=== PATIENT | female | born 1940 | race Caucasian/White ===

== ENCOUNTER 2018-05-25 12:02 | Inpatient (IN) | payer MEDICARE, OTHER ==
[~2018-05-25] VITALS: Ht 167.6 cm; Wt 88.0 kg
[~2018-05-25 12:02] MED LIST: ALLEGRA ALLERG180 MG PO; ASPIR 8181 MG PO; ATENOLOL 100MG100 M2 PO; COZAAR 50 MG TA50 MG PO; FISH OIL 1,001000 M2 PO; GLUCOPHAGE1000 MG PO; GLUCOPHAGE500 MG PO; HYDROCHLOROTHIA25 M1 PO; LIPITOR 10 MG10 M1 PO; PROBIOTIC1 EAC1 PO; TRAMADOL 50 MG50 MG PO
[2018-05-25 12:11] VITALS: BP 204/91
[2018-05-25] MEDS ORDERED: GLIPIZIDE ER2.5 MG PO (12:17)
[2018-05-25 12:35] LABS: ABSOLUTE BASOPHILS 0.1 thou/uL (0.0-0.2); ABSOLUTE EOSINOPHILS 0.1 thou/uL (0.0-0.7); ABSOLUTE LYMPHOCYTES 1.8 thou/uL (0.8-5.3); ABSOLUTE MONOCYTES 0.5 thou/uL (0.0-1.2); ABSOLUTE NEUTROPHILS 3.7 thou/uL (1.6-8.1); EOSINOPHILS 1.2 %; HEMATOCRIT 35.4 % (37.0-47.0); LYMPHOCYTES 29.5 %; MCH 30.8 pg (26.0-34.0); MCHC 33.9 g/dL (28.0-37.0); MPV 9.5 fl. (7.2-11.1); NUCLEATED RBCS 0 /100WBC; PLATELET COUNT* 181 thou/uL (150-400); POLYS 60.3 %; RBC 3.89 mil/uL (4.20-5.00); RDW-CV 13.3 % (10.5-14.5); WBC 6.1 thou/uL (4.0-11.0)
[2018-05-25 12:42] LABS: ANION GAP 8 mmol/L (7-16); BUN 18 mg/dL (7-18); CALCIUM 9.6 mg/dL (8.5-10.1); CHLORIDE 102 mmol/L (98-107); CO2 29 mmol/L (21-32); GLUCOSE 211 mg/dL (70-99); POTASSIUM 4.1 mmol/L (3.5-5.1); SODIUM 139 mmol/L (136-145)
[2018-05-25 12:50] LABS: ALBUMIN 3.7 g/dL (3.4-5.0); ALKALINE PHOSPHATASE 23 U/L (46-116); SGOT 26 U/L (15-37); SGPT 48 U/L (30-65); TOTAL BILIRUBIN 0.8 mg/dL (<0.1-1.0); TOTAL PROTEIN 7.3 g/dL (6.4-8.2); TROPONIN-I LEVEL <0.06 ng/mL (<0.06)
[2018-05-25 14:56] LABS: URINE BILIRUBIN NEGATIVE (Negative); URINE BLOOD NEGATIVE (Negative); URINE CLARITY CLEAR; URINE COLOR YELLOW; URINE GLUCOSE-RANDOM NEGATIVE (Negative); URINE KETONES NEGATIVE (Negative); URINE LEUKOCYTES-REFLEX TRACE (Negative); URINE PROTEIN NEGATIVE (Negative); URINE SPECIFIC GRAVITY >= 1.030 (1.005-1.030); URINE UROBILINOGEN 0.2 E.U./dl (0.2-1.0)
[2018-05-25 14:58] LABS: URINE NITRITE-REFLEX POSITIVE (Negative)
[2018-05-25 15:11] LABS: BACTERIA-REFLEX >30 Many /HPF (None Seen); SQUAMOUS >10 Many /LPF (0-3); URINE RBC None Seen /HPF (0-2); URINE WBC-REFLEX 0-5 Rare /HPF (0-5)
[2018-05-25 15:12] LABS: CASTS None Seen /LPF (None Seen); TRIPLE PHOSPHATE CRYSTALS 0-3 Few /LPF (None Seen)
[2018-05-25 16:03] VITALS: BP 163/80
[2018-05-25 17:00] VITALS: BP 167/72
[2018-05-25 20:00] VITALS: BP 168/80
[2018-05-26] VITALS (7 sets, daily range): BP systolic 108–171; BP diastolic 57–87
--- NOTE | 2018-05-26 14:58 | EKG ---
[place] [address] ELECTROCARDIOGRAM REPORT Name: NOA BARRERANE Wei Room: [address] ADM IN M.R.#: [id number] Admission: 05/25/18 Attend Phys: Brayan Sherwood, Discharge: Date of : 42 Report #: [id number] THIS REPORT FOR: //name// [facility] ED Test Date: 2018-05-25 Test Time: 12:37:10 Pat Name: FAREED BARRERA Department: Room: [facility] Gender: F Manager Solution: : 1940 Requested By: Mayi Torrez Order Number: [id number] MD: Rufino Ge Measurements Intervals Prentiss Rate: 68 P: 14 ND: 158 QRS: 27 QRSD: 98 T: 57 QT: 404 QTc: 430 Interpretive Statements Sinus rhythm Abnormal R-wave progression, early transition Baseline wander in lead(s) V1 Compared to ECG 07/09/2017 13:47:41 No significant changes Electronically Signed On 05-26-2018 14:58:26 CDT by Rufino Ge [email or web address] <ELECTRONICALLY SIGNED> By: Rufino Ge MD, FACC 05/26/18 1458 1237 1237 Rufino Ge MD, FACC /EPI
[2018-05-27 03:46] VITALS: BP 167/80
[2018-05-27 05:32] LABS: HEMATOCRIT 34.6 % (37.0-47.0); HEMOGLOBIN 11.7 gm/dL (12.0-15.0); MCHC 33.9 g/dL (28.0-37.0); MCV 91.4 fL (80.0-100.0); MPV 9.9 fl. (7.2-11.1); RBC 3.79 mil/uL (4.20-5.00); RDW-CV 13.8 % (10.5-14.5)
[2018-05-27 05:48] LABS: ALBUMIN 3.5 g/dL (3.4-5.0); CALCIUM 9.5 mg/dL (8.5-10.1); TOTAL BILIRUBIN 0.6 mg/dL (<0.1-1.0); TOTAL PROTEIN 6.9 g/dL (6.4-8.2)
[2018-05-27 08:00] VITALS: BP 146/73
[2018-05-27 12:16] VITALS: BP 146/73
[2018-05-27 13:26] VITALS: BP 171/78
[2018-05-27] MEDS ORDERED: VALIUM5 MG PO ×2 (13:54→13:58)
[2018-05-27] MEDS ORDERED: CHLORTHALIDONE25 MG PO (13:57)
--- NOTE | 2018-05-29 11:59 | CON ---
[address] [address] CONSULTATION Name: FAREED BARRERA Room: [address]#: [id number] Admission: 05/25/18 Attend Phys: Brayan Sherwood, Discharge: 05/27/18 Date of : 42 Report #: [id number] THIS REPORT FOR: //name// CC: River Sherwood MD DATE OF SERVICE: 05/26/2018 HISTORY OF PRESENT ILLNESS: The patient is a 77-year-old female who was admitted to the hospital for vertigo. She had it approximately 8 hours prior to admission, but it became worse 15 minutes prior to her arrival. The dizziness was so severe that she fell forward while sitting on the toilet. On admission, she was found to have a urinary tract infection. The patient is now on IV antibiotics and has also received some diazepam. She states she is feeling much better. PAST MEDICAL HISTORY: Hypertension, diabetes, hyperlipidemia, sleep apnea, chronic bronchitis, GERD. PAST SURGICAL HISTORY: Two foot surgeries, benign breast biopsy, right carpal tunnel release, bilateral cataract surgeries. MEDICATIONS: At home glipizide 2.5 mg daily, metformin 1000 mg b.i.d., atenolol 100 mg daily, hydrochlorothiazide 25 mg daily, losartan 100 mg daily, Lipitor 10 mg daily, aspirin 81 mg daily, fish oil 1000 mg daily, Denise 180 mg daily. ALLERGIES: None. PHYSICAL EXAMINATION: VITAL SIGNS: Temperature 36.7, pulse rate 66, respiratory rate 18, blood pressure 166/80. Bedside pulse oximetry 93% on room air. LABORATORY DATA: Hematology: White blood cell count 6.1, hemoglobin 12, hematocrit 35.4, MCV 91, platelet count 181,000. Urinalysis with positive nitrite, trace leukocyte esterase, many bacteria. Chemistry: Sodium 139, potassium 4.1, chloride 102, carbon dioxide 29, BUN 18, creatinine 1, GFR 54, glucose 211, calcium 9.6. Liver functions normal. Imaging study of the head: CT scan shows no acute intracranial process. NEUROLOGIC: Cranial nerves 2-12 are grossly intact. Motor exam demonstrates symmetrical strength in all 4 extremities with tone and bulk normal. Reflexes are symmetrical throughout. Plantar responses are flexor. Coordination reveals intact [id number]. Casual [place] [address] CONSULTATION Name: FAREED BARRERA Room: [address]#: [id number] Admission: 05/25/18 Attend Phys: Brayan Sherwood, Discharge: 05/27/18 Date of : 42 Report #: [id number] IMPRESSION: This patient has vertigo. It is unclear whether this is related to the urinary tract infection or not, but it certainly could be exacerbated by the urinary tract infection. As it turns out, the patient is much better with diazepam. My advice would be to send the patient home with a few tablets of diazepam just in case the vertigo returns and if the vertigo does not completely go away upon hospital discharge to either refer her or have her primary care refer her to hearing and balance in [facility]. Beyond this suggestion, I have nothing further to add and will sign off. <ELECTRONICALLY SIGNED> By: Katlyn Martins DO 05/29/18 1159 1254 [id number] Martins DO /nt
== END 2018-05-27 15:28 | disposition home or self-care (01) | DRG 149 ==
LOC: M.ERS 12:02 → M.TBA-ER 14:44 → M.2W 14:44 → M.ORTHSURG 15:12 → M.2W 16:00
PROVIDERS: Personal Emergency Response Attendant; ADMIT Family Medicine
DX: H81.10 Benign paroxysmal vertigo, unspecified ear (principal); N39.0 Urinary tract infection, site not specified; E86.0 Dehydration; I10 Essential (primary) hypertension; E11.9 Type 2 diabetes mellitus without complications; E78.00 Pure hypercholesterolemia, unspecified; I16.0 Hypertensive urgency; R27.0 Ataxia, unspecified; M19.90 Unspecified osteoarthritis, unspecified site; K21.9 Gastro-esophageal reflux disease without esophagitis; E66.9 Obesity, unspecified; Z68.31 Body mass index [BMI] 31.0-31.9, adult; Z87.828 Personal history of other (healed) physical injury and trauma; Z98.42 Cataract extraction status, left eye; Z98.41 Cataract extraction status, right eye; Z79.82 Long term (current) use of aspirin; Z79.84 Long term (current) use of oral hypoglycemic drugs; Z79.899 Other long term (current) drug therapy; Z28.21 Immunization not carried out because of patient refusal